=== PATIENT | female | born 2005 | race Caucasian/White ===

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

== ENCOUNTER 2024-04-09 13:19 | Emergency (ER) | payer SELFPAY ==
--- OUTSIDE RECORDS SUMMARY | 2024-04-09 13:24 | XMS REPORT | Continuity of Care Document ---
Author Name Unknown Address [address] [facility] [address] [place] [address] [facility] Address [address] [facility] [place] [address] Care Team Providers Care Demolition Engineer Name Role Phone KENYA ALMANZAR Primary Care Physician UnavailCLOTILDE Cui Attending Clinician Unavailable MADELIN TAVERAS Attending Clinician UnavailMADELIN Guy Attending Clinician Unavaila TY Bueno Attending Clinician Unavailable Clotilde Pineda MD Attending Clinician [phone] SADA GOMEZ Attending Clinician Unavailable Sada Gomez MD Attending Clinician [phone] Doctor Unassigned, [place] Attending Clinician U KATERYNA Gu Attending Clinician KATERYNA Wilhelm Attending Clinician SHAHNAZ Felix Attending Clinician Unavailable KRYSTINA WHYTE Attending Clinician Unavailable ANDREIA ROMAN Attending Clinician Unavailable Andreia Roman MD Attending Clinician [phone] Emma Ortega MD Attending Clinician [phone] EMMA ORTEGA Attending Clinician Unavailabl e Lab, Ang - Db Attending Clinician Unavailable Lab Attending Clinician Unavailable Shahnaz Kong PA-C Attending Clinician [phone] Patito Encarnacion Attending Clinician [phone] PATITO AWAD Attending Clinician Unavailable Lab, Adc Fam Pob I Attending Clinician Unavailab Yu Russothia Attending Clinician AMANDA MAZARIEGOS Attending Clinician Unavailable 2, Adc Lab Attending Clinician Unavailable EMMA ORTEGA Admitting Clinician Unavailabl e Payers Payer Name Policy Type Policy Number Effective Date Expirati on Date Source [facility] Emotient [facility] [id number] 2022 00:00:00 [place] [id number] 2019 00:00:00 Problems Condition Name Condition Details Condition Category Status Onset Date Resolution Date Last Treatment Date Treating Clinician Comments Source BMI 35.0-35.9, adult BMI 35.0-35.9, adult Disease Active 3-20 00:00: 00 [facility] Screening examinatio n for STD (sexually transmitte d disease) Screening examinatio n for STD (sexually transmitte d disease) Disease Active 8- 00:00: 00 [facility] Dysuria Dysuria Disease Active 8-11 00:00: 00 [facility] Pediatric body mass index (BMI) of greater than or equal to 95th percentile for age Pediatric body mass index (BMI) of greater than or equal to 95th percentile for age Disease Active 8- 00:00: 00 [facility] Nexplanon removal Nexplanon removal Disease Active 8-11 00:00: 00 [facility] Left wrist pain Left wrist pain Disease Active 2014-03 009 00:00: 00 [facility] Allergies, Adverse Reactions, Alerts Allergy Name Allergy Type Status Severity Reaction(s) Onset Date Inactive Date Treating Clinician Comments Source NO KNOWN ALLERGIE S Drug Class Active [facility] Social History Social Habit Start Date Stop Date Quantity Comments Source [facility] [place] [place] Sexual orientation [facility] [place] [place] History SDOH Alcohol Std Drinks [facility] History SDOH Alcohol Binge [facility] History SDOH Alcohol Comment [facility] Alcohol intake 2023-02-09 00:00:00 2023-02-09 00:00:00 0 /d [facility] Exposure to SARS-CoV-2 (event) 2022-05-12 00:00:00 2022-05-22 15:40:00 Not sure [facility] Tobacco use and exposure 2021-10-12 00:00:00 2021-10-12 00:00:00 Smokeless tobacco non-user [facility] Tobacco Comment 2021-10-12 00:00:00 2021-10-12 00:00:00 Minor [facility] History of Social function 2020-11-19 00:00:00 2020-11-19 00:00:00 [facility] History SDOH Alcohol Frequency 2019-10-03 00:00:00 2019-10-03 00:00:00 1 [facility] Sex Assigned At 2004 00:00:00 2005 00:00:00 [facility] Smoking Status Start Date Stop Date Source Never smoked tobacco [facility] Medications Ordered Medication Name Filled Medication Name Start Date Stop Date Current Medication? Ordering Clinician Indication Dosage Frequency Signature (SIG) Comments Components Source norelgestro min-ethinyl estradiol (XULANE) 150-35 mcg/24 hr patch 2022-03 00:00: 00 Yes [id number] 1{patch } Apply 1 Patch to skin weekly. [facility] NUVARING 0.12-0.015 mg/24 hr vaginal insert 2022-03 00:00: 00 02-09 00:00 :00 No [id number] 1{each} Insert 1 Each into vagina once every month. Insert vaginally and leave in place for 3 consecutiv e weeks, then remove for 1 week. [facility] ibuprofen (ADVIL) 200 mg tablet 10-03 14:21: 41 10-03 00:00 :00 No 200mg Take 200 mg by mouth every 6 (six) hours as needed. [facility] norgestimat e-ethinyl estradioL (ORTHO TRI-CYCLEN, 28,) 0.18/0.215/ 0.25 mg-35 mcg (28) tablet 10-03 00:00: 00 02-09 00:00 :00 No [id number] 1{tbl} Take 1 tablet by mouth in the morning. [facility] ibuprofen (ADVIL) 200 mg tablet 810 13:11: 47 Yes 200mg Take 200 mg by mouth every 6 (six) hours as needed. [facility] doxycycline monohydrate 100 mg capsule 09-07 00:00: 00 10-03 00:00 :00 No [facility] clindamycin 1 % gel 08-04 00:00: 00 10-03 00:00 :00 No [facility] Immunizations Ordered Immunization Name Filled Immunization Name Date Status Comments Source Influenza Virus Vaccine Quad IM 3+ YRS 2011-12-28 00:00:00 Completed [facility] Influenza Virus Vaccine Quad IM 3+ YRS 2011-12-28 00:00:00 Completed [facility] Influenza Virus Vaccine Quad IM 3+ YRS 2011-12-28 00:00:00 Completed [facility] Influenza Virus Vaccine Quad IM 3+ YRS 2011-12-28 00:00:00 Completed [facility] Influenza Virus Vaccine Quad IM 3+ YRS 2011-12-28 00:00:00 Completed [facility] Influenza Virus Vaccine Quad IM 3+ YRS 2011-12-28 00:00:00 Completed [facility] Influenza Virus Vaccine Quad IM 3+ YRS 2011-12-28 00:00:00 Completed [facility] Influenza Virus Vaccine Quad IM 3+ YRS 2008-11-27 00:00:00 Completed [facility] Influenza Virus Vaccine Quad IM 3+ YRS 2008-11-27 00:00:00 Completed [facility] Influenza Virus Vaccine Quad IM 3+ YRS 2008-11-27 00:00:00 Completed [facility] Influenza Virus Vaccine Quad IM 3+ YRS 2008-11-27 00:00:00 Completed [facility] Influenza Virus Vaccine Quad IM 3+ YRS 2008-11-27 00:00:00 Completed [facility] Influenza Virus Vaccine Quad IM 3+ YRS 2008-11-27 00:00:00 Completed [facility] Influenza Virus Vaccine Quad IM 3+ YRS 2008-11-27 00:00:00 Completed [facility] DTAP 2008-02-25 00:00:00 Completed [facility] MMR 2008-02-25 00:00:00 Completed [facility] Varicella (varivax)(chicken pox) 2008-02-25 00:00:00 Completed [facility] DTAP 2008-02-25 00:00:00 Completed [facility] MMR 2008-02-25 00:00:00 Completed [facility] Varicella (varivax)(chicken pox) 2008-02-25 00:00:00 Completed [facility] DTAP 2008-02-25 00:00:00 Completed [facility] MMR 2008-02-25 00:00:00 Completed [facility] Varicella (varivax)(chicken pox) 2008-02-25 00:00:00 Completed [facility] DTAP 2008-02-25 00:00:00 Completed [facility] MMR 2008-02-25 00:00:00 Completed [facility] Varicella (varivax)(chicken pox) 2008-02-25 00:00:00 Completed [facility] DTAP 2008-02-25 00:00:00 Completed [facility] MMR 2008-02-25 00:00:00 Completed [facility] Varicella (varivax)(chicken pox) 2008-02-25 00:00:00 Completed [facility] DTAP 2008-02-25 00:00:00 Completed [facility] MMR 2008-02-25 00:00:00 Completed [facility] Varicella (varivax)(chicken pox) 2008-02-25 00:00:00 Completed [facility] DTAP 2008-02-25 00:00:00 Completed [facility] MMR 2008-02-25 00:00:00 Completed [facility] Varicella (varivax)(chicken pox) 2008-02-25 00:00:00 Completed [facility] HEPATITIS A 2007-03-20 00:00:00 Completed [facility] HEPATITIS A 2007-03-20 00:00:00 Completed [facility] HEPATITIS A 2007-03-20 00:00:00 Completed [facility] HEPATITIS A 2007-03-20 00:00:00 Completed [facility] HEPATITIS A 2007-03-20 00:00:00 Completed [facility] HEPATITIS A 2007-03-20 00:00:00 Completed [facility] HEPATITIS A 2007-03-20 00:00:00 Completed [facility] HEPATITIS A 2006-02-22 00:00:00 Completed [facility] HEPATITIS A 2006-02-22 00:00:00 Completed [facility] HEPATITIS A 2006-02-22 00:00:00 Completed [facility] HEPATITIS A 2006-02-22 00:00:00 Completed [facility] HEPATITIS A 2006-02-22 00:00:00 Completed [facility] HEPATITIS A 2006-02-22 00:00:00 Completed [facility] HEPATITIS A 2006-02-22 00:00:00 Completed [facility] DTAP 2005-12-25 00:00:00 Completed [facility] DTAP 2005-12-25 00:00:00 Completed [facility] DTAP 2005-12-25 00:00:00 Completed [facility] DTAP 2005-12-25 00:00:00 Completed [facility] DTAP 2005-12-25 00:00:00 Completed [facility] DTAP 2005-12-25 00:00:00 Completed [facility] DTAP 2005-12-25 00:00:00 Completed [facility] HIB 4 Dose Schedule 2005-08-25 00:00:00 Completed [facility] HIB 4 Dose Schedule 2005-08-25 00:00:00 Completed [facility] HIB 4 Dose Schedule 2005-08-25 00:00:00 Completed [facility] HIB 4 Dose Schedule 2005-08-25 00:00:00 Completed [facility] HIB 4 Dose Schedule 2005-08-25 00:00:00 Completed [facility] HIB 4 Dose Schedule 2005-08-25 00:00:00 Completed [facility] HIB 4 Dose Schedule 2005-08-25 00:00:00 Completed [facility] MMR 2005-05-25 00:00:00 Completed [facility] Pneumococcal 13 Conjugate, PCV13 (Prevnar 13) 2005-05-25 00:00:00 Completed [facility] MMR 2005-05-25 00:00:00 Completed [facility] Pneumococcal 13 Conjugate, PCV13 (Prevnar 13) 2005-05-25 00:00:00 Completed [facility] MMR 2005-05-25 00:00:00 Completed [facility] Pneumococcal 13 Conjugate, PCV13 (Prevnar 13) 2005-05-25 00:00:00 Completed [facility] MMR 2005-05-25 00:00:00 Completed [facility] Pneumococcal 13 Conjugate, PCV13 (Prevnar 13) 2005-05-25 00:00:00 Completed [facility] MMR 2005-05-25 00:00:00 Completed [facility] Pneumococcal 13 Conjugate, PCV13 (Prevnar 13) 2005-05-25 00:00:00 Completed [facility] MMR 2005-05-25 00:00:00 Completed [facility] Pneumococcal 13 Conjugate, PCV13 (Prevnar 13) 2005-05-25 00:00:00 Completed [facility] MMR 2005-05-25 00:00:00 Completed [facility] Pneumococcal 13 Conjugate, PCV13 (Prevnar 13) 2005-05-25 00:00:00 Completed [facility] Polio (IPV/OPV) 2005-02-24 00:00:00 Completed [facility] Polio (IPV/OPV) 2005-02-24 00:00:00 Completed [facility] Polio (IPV/OPV) 2005-02-24 00:00:00 Completed [facility] Polio (IPV/OPV) 2005-02-24 00:00:00 Completed [facility] Polio (IPV/OPV) 2005-02-24 00:00:00 Completed [facility] Polio (IPV/OPV) 2005-02-24 00:00:00 Completed [facility] Polio (IPV/OPV) 2005-02-24 00:00:00 Completed [facility] Varicella (varivax)(chicken pox) 2005-02-22 00:00:00 Completed [facility] Varicella (varivax)(chicken pox) 2005-02-22 00:00:00 Completed [facility] Varicella (varivax)(chicken pox) 2005-02-22 00:00:00 Completed [facility] Varicella (varivax)(chicken pox) 2005-02-22 00:00:00 Completed [facility] Varicella (varivax)(chicken pox) 2005-02-22 00:00:00 Completed [facility] Varicella (varivax)(chicken pox) 2005-02-22 00:00:00 Completed [facility] Varicella (varivax)(chicken pox) 2005-02-22 00:00:00 Completed [facility] Influenza Virus Vaccine Quad IM 6-35 MO 2005-01-12 00:00:00 Completed [facility] Influenza Virus Vaccine Quad IM 6-35 MO 2005-01-12 00:00:00 Completed [facility] Influenza Virus Vaccine Quad IM 6-35 MO 2005-01-12 00:00:00 Completed [facility] Influenza Virus Vaccine Quad IM 6-35 MO 2005-01-12 00:00:00 Completed [facility] Influenza Virus Vaccine Quad IM 6-35 MO 2005-01-12 00:00:00 Completed [facility] Influenza Virus Vaccine Quad IM 6-35 MO 2005-01-12 00:00:00 Completed [facility] Influenza Virus Vaccine Quad IM 6-35 MO 2005-01-12 00:00:00 Completed [facility] Influenza Virus Vaccine Quad IM 6-35 MO 2004 00:00:00 Completed [facility] Influenza Virus Vaccine Quad IM 6-35 MO 2004 00:00:00 Completed [facility] Influenza Virus Vaccine Quad IM 6-35 MO 2004 00:00:00 Completed [facility] Influenza Virus Vaccine Quad IM 6-35 MO 2004 00:00:00 Completed [facility] Influenza Virus Vaccine Quad IM 6-35 MO 2004 00:00:00 Completed [facility] Influenza Virus Vaccine Quad IM 6-35 MO 2004 00:00:00 Completed [facility] Influenza Virus Vaccine Quad IM 6-35 MO 2004 00:00:00 Completed [facility] HIB 4 Dose Schedule 2004 00:00:00 Completed [facility] Pediarix (dtap/hep B/ipv) 2004 00:00:00 Completed [facility] Pneumococcal 13 Conjugate, PCV13 (Prevnar 13) 2004 00:00:00 Completed [facility] HIB 4 Dose Schedule 2004 00:00:00 Completed [facility] Pediarix (dtap/hep B/ipv) 2004 00:00:00 Completed [facility] Pneumococcal 13 Conjugate, PCV13 (Prevnar 13) 2004 00:00:00 Completed [facility] HIB 4 Dose Schedule 2004 00:00:00 Completed [facility] Pediarix (dtap/hep B/ipv) 2004 00:00:00 Completed [facility] Pneumococcal 13 Conjugate, PCV13 (Prevnar 13) 2004 00:00:00 Completed [facility] HIB 4 Dose Schedule 2004 00:00:00 Completed [facility] Pediarix (dtap/hep B/ipv) 2004 00:00:00 Completed [facility] Pneumococcal 13 Conjugate, PCV13 (Prevnar 13) 2004 00:00:00 Completed [facility] HIB 4 Dose Schedule 2004 00:00:00 Completed [facility] Pediarix (dtap/hep B/ipv) 2004 00:00:00 Completed [facility] Pneumococcal 13 Conjugate, PCV13 (Prevnar 13) 2004 00:00:00 Completed [facility] HIB 4 Dose Schedule 2004 00:00:00 Completed [facility] Pediarix (dtap/hep B/ipv) 2004 00:00:00 Completed [facility] Pneumococcal 13 Conjugate, PCV13 (Prevnar 13) 2004 00:00:00 Completed [facility] HIB 4 Dose Schedule 2004 00:00:00 Completed [facility] Pediarix (dtap/hep B/ipv) 2004 00:00:00 Completed [facility] Pneumococcal 13 Conjugate, PCV13 (Prevnar 13) 2004 00:00:00 Completed [facility] HIB 4 Dose Schedule 2004 00:00:00 Completed [facility] Pediarix (dtap/hep B/ipv) 2004 00:00:00 Completed [facility] Pneumococcal 13 Conjugate, PCV13 (Prevnar 13) 2004 00:00:00 Completed [facility] HIB 4 Dose Schedule 2004 00:00:00 Completed [facility] Pediarix (dtap/hep B/ipv) 2004 00:00:00 Completed [facility] Pneumococcal 13 Conjugate, PCV13 (Prevnar 13) 2004 00:00:00 Completed [facility] HIB 4 Dose Schedule 2004 00:00:00 Completed [facility] Pediarix (dtap/hep B/ipv) 2004 00:00:00 Completed [facility] Pneumococcal 13 Conjugate, PCV13 (Prevnar 13) 2004 00:00:00 Completed [facility] HIB 4 Dose Schedule 2004 00:00:00 Completed [facility] Pediarix (dtap/hep B/ipv) 2004 00:00:00 Completed [facility] Pneumococcal 13 Conjugate, PCV13 (Prevnar 13) 2004 00:00:00 Completed [facility] HIB 4 Dose Schedule 2004 00:00:00 Completed [facility] Pediarix (dtap/hep B/ipv) 2004 00:00:00 Completed [facility] Pneumococcal 13 Conjugate, PCV13 (Prevnar 13) 2004 00:00:00 Completed [facility] HIB 4 Dose Schedule 2004 00:00:00 Completed [facility] Pediarix (dtap/hep B/ipv) 2004 00:00:00 Completed [facility] Pneumococcal 13 Conjugate, PCV13 (Prevnar 13) 2004 00:00:00 Completed [facility] HIB 4 Dose Schedule 2004 00:00:00 Completed [facility] Pediarix (dtap/hep B/ipv) 2004 00:00:00 Completed [facility] Pneumococcal 13 Conjugate, PCV13 (Prevnar 13) 2004 00:00:00 Completed [facility] HIB 4 Dose Schedule 2004 00:00:00 Completed [facility] Pediarix (dtap/hep B/ipv) 2004 00:00:00 Completed [facility] Pneumococcal 13 Conjugate, PCV13 (Prevnar 13) 2004 00:00:00 Completed [facility] HIB 4 Dose Schedule 2004 00:00:00 Completed [facility] Pediarix (dtap/hep B/ipv) 2004 00:00:00 Completed [facility] Pneumococcal 13 Conjugate, PCV13 (Prevnar 13) 2004 00:00:00 Completed [facility] HIB 4 Dose Schedule 2004 00:00:00 Completed [facility] Pediarix (dtap/hep B/ipv) 2004 00:00:00 Completed [facility] Pneumococcal 13 Conjugate, PCV13 (Prevnar 13) 2004 00:00:00 Completed [facility] HIB 4 Dose Schedule 2004 00:00:00 Completed [facility] Pediarix (dtap/hep B/ipv) 2004 00:00:00 Completed [facility] Pneumococcal 13 Conjugate, PCV13 (Prevnar 13) 2004 00:00:00 Completed [facility] HIB 4 Dose Schedule 2004 00:00:00 Completed [facility] Pediarix (dtap/hep B/ipv) 2004 00:00:00 Completed [facility] Pneumococcal 13 Conjugate, PCV13 (Prevnar 13) 2004 00:00:00 Completed [facility] HIB 4 Dose Schedule 2004 00:00:00 Completed [facility] Pediarix (dtap/hep B/ipv) 2004 00:00:00 Completed [facility] Pneumococcal 13 Conjugate, PCV13 (Prevnar 13) 2004 00:00:00 Completed [facility] HIB 4 Dose Schedule 2004 00:00:00 Completed [facility] Pediarix (dtap/hep B/ipv) 2004 00:00:00 Completed [facility] Pneumococcal 13 Conjugate, PCV13 (Prevnar 13) 2004 00:00:00 Completed [facility] Polio (IPV/OPV) Unknown Completed [facility] DTAP Unknown Completed [facility] HIB 4 Dose Schedule Unknown Completed [facility] HEPATITIS A Unknown Completed [facility] MMR Unknown Completed [facility] Pediarix (dtap/hep B/ipv) Unknown Completed [facility] Pneumococcal 13 Conjugate, PCV13 (Prevnar 13) Unknown Completed [facility] Varicella (varivax)(chicken pox) Unknown Completed [facility] Influenza Virus Vaccine Quad IM 6-35 MO Unknown Completed [facility] Influenza Virus Vaccine Quad IM 3+ YRS Unknown Completed [facility] DTAP Unknown Completed [facility] HIB 4 Dose Schedule Unknown Completed [facility] HEPATITIS A Unknown Completed [facility] MMR Unknown Completed [facility] Pediarix (dtap/hep B/ipv) Unknown Completed [facility] Pneumococcal 13 Conjugate, PCV13 (Prevnar 13) Unknown Completed [facility] Polio (IPV/OPV) Unknown Completed [facility] Varicella (varivax)(chicken pox) Unknown Completed [facility] Influenza Virus Vaccine Quad IM 6-35 MO Unknown Completed [facility] Influenza Virus Vaccine Quad IM 3+ YRS Unknown Completed [facility] DTAP Unknown Completed [facility] HIB 4 Dose Schedule Unknown Completed [facility] HEPATITIS A Unknown Completed [facility] MMR Unknown Completed [facility] Pediarix (dtap/hep B/ipv) Unknown Completed [facility] Pneumococcal 13 Conjugate, PCV13 (Prevnar 13) Unknown Completed [facility] Polio (IPV/OPV) Unknown Completed [facility] Varicella (varivax)(chicken pox) Unknown Completed [facility] Influenza Virus Vaccine Quad IM 6-35 MO Unknown Completed [facility] Influenza Virus Vaccine Quad IM 3+ YRS Unknown Completed [facility] Vital Signs Vital Name Observation Time Observation Value Comments S arsalan Systolic blood pressure 2023-02-09 19:36:00 123 mm[Hg] [facility] Diastolic blood pressure 2023-02-09 19:36:00 69 mm[Hg] [facility] Heart rate 2023-02-09 19:36:00 78 /min [facility] Respiratory rate 2023-02-09 19:36:00 18 /min [facility] Body height 2023-02-09 19:36:00 160 cm [facility] Body weight 2023-02-09 19:36:00 74.39 kg [facility] BMI 2023-02-09 19:36:00 29.05 kg/m2 [facility] Body mass index (BMI) [Percentile] Per age and sex 2023-02-09 19:36:00 92.61 % [facility] Systolic blood pressure 2022-10-03 19:29:00 108 mm[Hg] [facility] Diastolic blood pressure 2022-10-03 19:29:00 72 mm[Hg] [facility] Heart rate 2022-10-03 19:29:00 84 /min [facility] Body temperature 2022-10-03 19:29:00 36.67 Zoey [facility] Respiratory rate 2022-10-03 19:29:00 16 /min [facility] Body height 2022-10-03 19:29:00 160 cm [facility] Body weight 2022-10-03 19:29:00 82.237 kg [facility] BMI 2022-10-03 19:29:00 32.12 kg/m2 [facility] Body mass index (BMI) [Percentile] Per age and sex 2022-10-03 19:29:00 96.15 % [facility] Oxygen saturation in Arterial blood by Pulse oximetry 2022-10-03 19:29:00 97 /min [facility] Systolic blood pressure 2022-05-22 20:49:00 123 mm[Hg] [facility] Diastolic blood pressure 2022-05-22 20:49:00 78 mm[Hg] [facility] Heart rate 2022-05-22 20:49:00 78 /min [facility] Respiratory rate 2022-05-22 20:49:00 18 /min [facility] Body height 2022-05-22 20:49:00 160 cm [facility] Body weight 2022-05-22 20:49:00 89.812 kg [facility] BMI 2022-05-22 20:49:00 35.07 kg/m2 [facility] Body mass index (BMI) [Percentile] Per age and sex 2022-05-22 20:49:00 97.73 % [facility] [facility] Systolic blood pressure 2021-10-12 18:10:00 108 mm[Hg] [facility] Diastolic blood pressure 2021-10-12 18:10:00 71 mm[Hg] [facility] Heart rate 2021-10-12 18:10:00 63 /min [facility] Body temperature 2021-10-12 18:10:00 36.78 Zoey [facility] Respiratory rate 2021-10-12 18:10:00 18 /min [facility] Body height 2021-10-12 18:10:00 160 cm [facility] Body weight 2021-10-12 18:10:00 78.019 kg [facility] BMI 2021-10-12 18:10:00 30.47 kg/m2 [facility] Body mass index (BMI) [Percentile] Per age and sex 2021-10-12 18:10:00 95.42 % [facility] Procedures Procedure Date / Time Performed Performing Clinician Source CONSENT FOR CONTRACEPTION 2023-02-09 06:01:00 Doctor Unassigned, [place] [facility] POCT TEST 2023-02-09 00:00:00 Sada Gomez [facility] CONSENT FOR CONTRACEPTION 2022-10-03 05:01:00 Doctor Unassigned, [place] [facility] POCT TEST 2022-10-03 00:00:00 Zenobia Taveras [facility] ASSIGNMENT OF BENEFITS 2022-05-22 20:43:27 Docto r Unassigned, [place] [facility] VACCINATIONS - CONSENTS, ELIGIBILITY, HISTORY 2021-11-04 05:01:00 Doctor Unassigned, [place] [facility] POCT URINALYSIS W/O SPECIFIC GRAVITY 2021-10-12 00:00:00 Madelin Taveras [facility] Encounters Start Date/Time End Date/Time Encounter Type Admission Type Attending Clinicians Care Facility Care Department Encounter ID Source 2023-10-12 13:00:00 2023-10-12 13:00:00 Outpatient R CLOTILDE PINEDA [facility] [id number] [facility] 2023-10-08 15:30:00 2023-10-08 15:30:00 Outpatient R MADELIN TAVERAS CHERYAL [facility] [id number] [facility] 2023-05-21 16:30:00 2023-05-21 16:30:00 Outpatient R TY RAPP [facility] [id number] [facility] 2023-05-16 00:00:00 2023-05-16 00:00:00 Telephone Clotilde Pineda [facility] 1.840.114 350.1.13.10 4.2.7.2.686 [id number] [facility] 2023-02-09 14:00:00 2023-02-09 14:19:24 Outpatient SADA CORDOVA [facility] [id number] [facility] 2023-02-09 14:00:00 2023-02-09 14:19:24 Office Visit Sada Gomez [facility] 1.840.114 350.1.13.10 4.2.7.2.686 [id number] [facility] 2023-02-09 00:00:00 2023-02-09 00:00:00 Orders Only Doctor Unassigned, [place] [facility] 1.840.114 350.1.13.10 4.2.7.2.686 [id number] [facility] 2022-10-03 14:30:00 2022-10-03 14:42:01 Outpatient R MADELIN TAVERAS CHERYAL [facility] [id number] [facility] 2022-10-03 14:30:00 2022-10-03 14:42:01 Office Visit Madelin Taveras [facility] 1.2.840.114 350.1.13.10 4.2.7.2.686 [id number] [facility] 2022-10-03 00:00:00 2022-10-03 00:00:00 Orders Only Doctor Unassigned, [place] [facility] 1.2.840.114 350.1.13.10 4.2.7.2.686 [id number] [facility] 2022-05-25 00:00:00 2022-05-25 00:00:00 [facility] 1.2840.114 350.1.13.10 4.2.7.2.686 [id number] [facility] 2022-05-22 16:00:00 2022-05-22 16:11:36 Outpatient R AURORAAUNDREA PATIÑODARIEL [facility] [id number] [facility] 2022-05-22 16:00:00 2022-05-22 16:11:36 Office Visit Madelin Taveras [facility] 1.2.840.114 350.1.13.10 4.2.7.2.686 [id number] [facility] 2022-05-22 00:00:00 2022-05-22 00:00:00 Orders Only Doctor Unassigned, [place] [facility] 1.2.840.114 350.1.13.10 4.2.7.2.686 [id number] [facility] 2022-05-10 13:00:00 2022-05-10 13:00:00 Outpatient R MADELIN TAVERAS CHERYAL [facility] [id number] [facility] 2021-11-04 00:00:00 2021-11-04 00:00:00 Orders Only Doctor Unassigned, [place] [facility] 1.2.840.114 350.1.13.10 4.2.7.2.686 [id number] [facility] 2021-10-12 13:00:00 2021-10-12 14:32:17 Outpatient R MADELIN TAVERAS CHERYAL [facility] [id number] [facility] 2021-10-12 13:00:00 2021-10-12 14:32:17 Office Visit SandyMadelin lafleur [facility] 1.2.840.114 350.1.13.10 4.2.7.2.686 [id number] [facility] 2021-10-11 09:00:00 2021-10-11 09:00:00 Outpatient R MADELIN TAVERAS CHERY[facility] [id number] [facility] 2021-10-05 09:00:00 2021-10-05 09:00:00 Outpatient R SHAHNAZ KONG [facility] [id number] [facility] 2021-08-15 09:00:00 2021-08-15 09:00:00 Outpatient KRYSTINA BOB [facility] [id number] [facility] 2021-05-20 12:00:00 2021-05-20 12:00:00 Outpatient ANDREIA CHAN [facility] [id number] [facility] 2021-05-06 12:40:00 2021-05-06 12:40:00 Outpatient ANDREIA CHAN [facility] [id number] [facility] 2021-04-22 12:20:00 2021-04-22 12:20:00 Outpatient ANDREIA CHAN [facility] [id number] [facility] 2021-01-21 13:48:33 2021-01-21 23:59:00 Outpatient R ANDREIA ROMAN [facility] [id number] [facility] 2021-01-21 13:48:33 2021-01-21 23:59:00 Hospital Encounter Andreia oRman [facility] 1.2.840.114 350.1.13.10 4.2.7.2.686 [id number] [facility] 2021-01-21 13:40:00 2021-01-21 14:26:58 Office Visit Andreia Roman [facility] 1.2840.114 350.1.13.10 4.2.7.2.686 [id number] [facility] 2021-01-21 13:48:33 2021-01-21 13:48:33 Outpatient R ANDREIA ROMAN [facility] [id number] [facility] 2021-01-21 00:00:00 2021-01-21 00:00:00 Letter (Out) Andreia Roman [facility] 1.2840.114 350.1.13.10 4.2.7.2.686 [id number] [facility] 2020-12-16 00:00:00 2020-12-16 00:00:00 Letter (Out) Emma Ortega [facility] Office Building 1.2840.114 350.1.13.10 4.2.7.2.686 [id number] [facility] 2020-12-09 00:00:00 2020-12-09 00:00:00 Telephone Emma Ortega [facility] 1.2840.114 350.1.13.10 4.2.7.2.686 [id number] [facility] 2020-11-26 08:30:00 2020-11-26 08:30:00 Outpatient R EMMA ORTEGA [facility] [id number] [facility] 2020-11-19 10:03:46 2020-11-19 10:18:46 Loan Servicing Officer Visit Lab, Ang - Db Emma Ortega [facility] 1.114 350.1.13.10 4.2.7.2.686 [id number] [facility] 2020-11-19 09:03:28 2020-11-19 09:17:01 Office Visit [facility] Office Building 1.114 350.1.13.10 4.2.7.2.686 [id number] [facility] 2020-11-19 09:00:00 2020-11-19 09:00:00 Outpatient R EMMA ORTEGA [facility] [id number] [facility] 2020-11-19 00:00:00 2020-11-19 00:00:00 Letter (Out) Emma Ortega [facility] 1..114 350.1.13.10 4.2.7.2.686 [id number] [facility] 2020-10-05 10:31:01 2020-10-05 10:46:01 Loan Servicing Officer Visit 1, Adc Lab Lu[facility] 1.114 350.1.13.10 4.2.7.2.686 [id number] [facility] 2020-10-05 09:39:41 2020-10-05 10:03:56 Office Visit [facility] nal [facility] 1..114 350.1.13.10 4.2.7.2.686 [id number] [facility] 2020-10-05 09:30:00 2020-10-05 09:30:00 Outpatient SHAHNAZ SAUNDERS [facility] [id number] [facility] 2020-10-05 00:00:00 2020-10-05 00:00:00 Orders Only Doctor Unassigned, [place] [facility] 1.2.840.114 350.1.13.10 4.2.7.2.686 [id number] [facility] 2020-10-04 14:00:00 2020-10-04 14:00:00 Outpatient SHAHNAZ SAUNDERS [facility] [id number] [facility] 2020-07-26 15:33:59 2020-07-26 15:56:51 Office Visit Emma Ortega [facility] [place] [place] 1..840.114 350.1.13.10 4.2.7.2.686 [id number] [facility] 2020-07-26 15:30:00 2020-07-26 15:30:00 Outpatient EMMA MONIQUE [facility] [id number] [facility] 2020-07-19 09:47:59 2020-07-19 23:59:00 Outpatient EMMA MONIQUE [facility] [id number] [facility] 2020-07-19 09:47:59 2020-07-19 23:59:00 Hospital Encounter Emma Ortega [facility] 1..840.114 350.1.13.10 4.2.7.2.686 [id number] [facility] 2020-07-19 00:00:00 2020-07-19 00:00:00 Outpatient EMMA MONIQUE [facility] [id number] [facility] 2020-07-13 00:00:00 2020-07-13 00:00:00 Outpatient R EMMA ORTEGA [facility] [id number] [facility] 2020-07-08 00:00:00 2020-07-08 00:00:00 Orders Only Doctor Unassigned, [place] [facility] 1..114 350.1.13.10 4.2.7.2.686 [id number] [facility] 2020-06-30 00:00:00 2020-06-30 00:00:00 Telephone Emma Ortega [facility] [place] [place] 1..114 350.1.13.10 4.2.7.2.686 [id number] [facility] 2020-06-24 10:52:22 2020-06-24 11:11:02 Office Visit Emma Ortega Brett S [facility] Surgical [facility] 1..114 350.1.13.10 4.2.7.2.686 [id number] [facility] 2020-06-24 10:45:00 2020-06-24 10:45:00 Outpatient PATITO LEGGETT [facility] [id number] [facility] 2020-06-24 00:00:00 2020-06-24 00:00:00 Letter (Out) Emma Ortega [facility] Surgical [facility] [place]ie [place] 1..114 350.1.13.10 4.2.7.2.686 [id number] [facility] 2020-05-18 09:13:30 2020-05-18 09:33:30 Laboratory Only Lab, Adc Fam Amanda Kay [facility] Professio nal Office Building One 1.114 350.1.13.10 4.2.7.2.686 [id number] [facility] 2020-05-18 09:00:00 2020-05-18 09:00:00 Outpatient R AMANDA MAZARIEGOS [facility] [id number] [facility] 2020-05-18 00:00:00 2020-05-18 00:00:00 Letter (Out) Doctor Unassigned, [place] [facility] 1.2.840.114 350.1.13.10 4.2.7.2.686 [id number] [facility] 2020-05-18 00:00:00 2020-05-18 00:00:00 Letter (Out) Doctor Unassigned, [place] [facility] 1.2840.114 350.1.13.10 4.2.7.2.686 [id number] [facility] 2019-10-14 10:14:17 2019-10-14 11:00:23 Office Visit Clotilde Pineda [facility] 1.20.114 350.1.13.10 4.2.7.2.686 [id number] 2019-10-14 10:14:17 2019-10-14 11:00:23 Office Visit Clotilde Pineda [facility] 1.2840.114 350.1.13.10 4.2.7.2.686 [id number] [facility] 2019-10-14 10:30:00 2019-10-14 10:30:00 Outpatient R CLOTILDE PINEDA [facility] [id number] [facility] 2019-10-14 00:00:00 2019-10-14 00:00:00 Orders Only Doctor Unassigned, [place] [facility] 1.2840.114 350.1.13.10 4.2.7.2.686 [id number] 2019-10-14 00:00:00 2019-10-14 00:00:00 Orders Only Doctor Unassigned, [place] [facility] 1.2840.114 350.1.13.10 4.2.7.2.686 [id number] [facility] 2019-10-06 13:38:20 2019-10-06 13:53:20 Loan Servicing Officer Visit 2, Adc Lab Shahnaz Kong [facility] [place] 1.84.114 350.1.13.10 4.2.7.2.686 [id number] [facility] 2019-10-06 13:15:00 2019-10-06 13:15:00 Outpatient R [facility] [id number] [facility] 2019-10-03 15:37:18 2019-10-03 16:07:18 Office Visit Shahnaz Kong [facility] 1.84.114 350.1.13.10 4.2.7.2.686 [id number] [facility] 2019-10-03 15:30:00 2019-10-03 15:30:00 Outpatient R LUANN [facility] [id number] [facility] 2019-05-21 15:45:00 2019-05-21 15:45:00 Outpatient R PATITO AWAD [facility] [id number] [facility] 2019-05-21 12:49:05 2019-05-21 13:04:05 Office Visit Patito Awad [facility] Surgical Specialkathryn [facility] 1.84.114 350.1.13.10 4.2.7.2.686 [id number] [facility] 2019-05-13 00:00:00 2019-05-13 00:00:00 Orders Only Doctor Unassigned, [place] [facility] 1..114 350.1.13.10 4.2.7.2.686 [id number] [facility] 2019-05-08 00:00:00 2019-05-08 00:00:00 Letter (Out) Emma Ortega [facility] [place] 1.2.840.114 350.1.13.10 4.2.7.2.686 [id number] [facility] 2019-05-07 09:11:19 2019-05-07 23:59:00 Hospital Encounter Emma Ortega [facility] 1.2.840.114 350.1.13.10 4.2.7.2.686 [id number] [facility] 2019-05-07 00:00:00 2019-05-07 00:00:00 Outpatient R SHANNON [facility] [id number] [facility] 2019-05-07 00:00:00 2019-05-07 00:00:00 Orders Only Doctor Unassigned, [place] [facility] 1.2.840.114 350.1.13.10 4.2.7.2.686 [id number] [facility] 2019-04-29 00:00:00 2019-04-29 00:00:00 Telephone Emma Ortega [facility] Surgical Specialti rickie Cohen 1.2.840.114 350.1.13.10 4.2.7.2.686 [id number] [facility] 2019-04-22 00:00:00 2019-04-22 00:00:00 Telephone Patito Awad [facility] Surgical Specialti rickie Cohen 1.2.840.114 350.1.13.10 4.2.7.2.686 [id number] [facility] 2019-04-18 10:00:00 2019-04-18 10:40:23 Outpatient R PATITO AWAD [facility] [id number] [facility] 2019-04-18 10:07:15 2019-04-18 10:22:15 Office Visit Patito Awad [facility] [place] 1.2.840.114 350.1.13.10 4.2.7.2.686 [id number] [facility] 2019-04-18 00:00:00 2019-04-18 00:00:00 Letter (Out) Patito Awad [facility] Surgical Specialkathryn Cohen 1.2.840.114 350.1.13.10 4.2.7.2.686 [id number] [facility] 2019-04-18 00:00:00 2019-04-18 00:00:00 Telephone Patito Awad [facility] Surgical Specialkathryn Cohen 1.2.840.114 350.1.13.10 4.2.7.2.686 [id number] [facility] Results Test Description Test Time Test Comments Results Result Co mments Source [facility] [id number] 20:11:00* Test Item Value Reference Range Interpretation Comme nts POCT PREG (test code = 1605) Negative On board controls acceptable with C Line (test code = 3574) Yes POCT PREG LOT # (test code = 3575) POCT PREG TEST DATE ( test code = 3576) [facility] [id number] 19:33:00* Test Item Value Reference Range Interpretation Comme nts POCT PREG (test code = 1605) Negative On board controls acceptable with C Line (test code = 3574) Yes POCT PREG LOT # (test code = 3575) POCT PREG TEST DATE ( test code = 3576) [facility] [id number] 19:33:00* Test Item Value Reference Range Interpretation Comme nts POCT PREG (test code = 1605) Negative On board controls acceptable with C Line (test code = 3574) Yes POCT PREG LOT # (test code = 3575) POCT PREG TEST DATE ( test code = 3576) [facility] URINALYSIS W/O SPECIFIC [id number] 18:12:00* Test Item Value Reference Range Interpretation [...] = 3257) negative Negative - [facility]ati [facility] [id number] 18:12:00* Test Item Value Reference Range Interpretation [...] = 3257) negative Negative - Negati ve [facility]
[2024-04-09] MEDS ORDERED: ONDANSETRON 4 MG (ODT) TAB ONE (13:30)
[2024-04-09 14:19] LABS: SARS-CoV-2 Antigen CONTROL BLUE LINE VIS/BG OK; SARS-CoV-2 Antigen Rapid Res Negative (Negative)
--- NOTE | 2024-04-09 14:27 | ER ---
Nurse's Notes [facility] Name: Gely Merrill Age: 19 yrs Sex: Female : 2005 Arrival Date: 04/09/2024 Time: 13:19 Bed DX3 Private MD: Diagnosis: Influenza due to identified novel influenza A virus Presentation: 04/09 13:29 Chief complaint: Patient states: Headache, sore throat, fever, cough onset Sunday. Pt cm10 diagnosed with ear infection on Sunday and placed on ABX. Coronavirus screen: Client denies travel out of the [place] in the last 14 days. Ebola Screen: Patient denies travel to an Ebola-affected area in the 21 days before illness onset. 13:29 Method Of Arrival: Ambulatory cm10 13:32 Initial Sepsis Screen: Does the patient meet any 2 criteria? HR > 90 bpm. Does the cm10 patient have a suspected source of infection? No. Patient's initial sepsis screen is negative. Risk Assessment: Do you want to hurt yourself or someone else? Patient reports no desire to harm self or others. Onset of symptoms was April 07, 2024. 13:32 Acuity: SATYA 4 cm10 Triage Assessment: 13:33 General: Appears uncomfortable, Behavior is calm, cooperative. Neuro: No deficits cm10 noted. Level of Consciousness is awake, alert, obeys commands, Oriented to person, place, time, situation, Appropriate for age. Respiratory: No deficits noted. Airway is patent Respiratory effort is even, unlabored, Respiratory pattern is regular, symmetrical. 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 - Infectious Disease History:: Denies. - Social history:: Smoking status: Patient denies any tobacco usage or history of. Screenin:32 [facility] ED Fall Risk Assessment (Adult) History of falling in the last 3 months, iw including since admission No falls in past 3 months (0 pts) Confusion or Disorientation No (0 pts) Intoxicated or Sedated No (0 pts) Impaired Gait No (0 pts) Mobility Assist Device Used No (0 pt) Altered Elimination No (0 pt) Score/Fall Risk Level 0 - 2 = Low Risk Oriented to surroundings, Maintained a safe environment. Abuse screen: Denies threats or abuse. Denies injuries from another. Nutritional screening: No deficits noted. Tuberculosis screening: No symptoms or risk factors identified. Assessment: 14:00 General: Appears in no apparent distress. Behavior is calm, cooperative. General: iw Reports. Neuro: Wise Agitation-Sedation Scale (RASS): Level of Consciousness is awake, alert, obeys commands, Oriented to person, place, time, situation, Moves all extremities. Full function. Respiratory: Respiratory effort is even, unlabored, Respiratory pattern is regular, symmetrical. GI: Vital Signs: 13:29 BP 116 / 80; Pulse 117; Resp 18; Temp 99.5(O); Pulse Ox 97% on R/A; Weight 63.5 kg; cm10 Height 5 ft. 3 in. ; Pain 7/10; 13:29 Body Mass Index 24.80 (63.50 kg, 160.02 cm) cm10 13:29 Pain Scale: Adult cm10 ED Course: 13:24 Patient arrived in ED. al6 13:26 Radha Lan FNP-C [facility] kb 13:26 Devon Sousa MD is Attending Physician. kb 13:33 Triage completed. cm10 13:33 Arm band placed on right wrist. Patient placed in waiting room. cm10 13:37 SARS RAPID Sent. cm10 13:37 Strep Sent. cm10 13:37 Flu Sent. cm10 13:37 COVID swab sent to lab. Flu and/or RSV swab sent to lab. Strep swab sent to lab. cm10 14:31 Savannah Dorsey, RN is Primary Nurse. iw 14:32 No provider procedures requiring assistance completed. Patient did not have IV access iw during this emergency room visit. Administered Medications: 13:37 Drug: Ondansetron PO 4 mg PO once Route: PO; cm10 Medication: 14:30 VIS not applicable for this client. iw Outcome: 14:26 Discharge ordered by . kb 14:31 Discharged to home ambulatory, iw 14:31 Condition: good 14:31 Discharge instructions given to patient, Instructed on discharge instructions, follow up and referral plans. Demonstrated understanding of instructions, follow-up care, medications, Prescriptions given X 1, 14:32 Patient left the ED. iw Signatures: Radha Lan, ALEXANDER-C STUDENT TRUCK DRIVER-Savannah Felix RN RN iw Lori Rosario RN RN cm10 Kat Prasad6 Corrections: (The following items were deleted from the chart) 13:33 13:29 BP 116 / 80; Pulse 117bpm; Resp 18bpm; Pulse Ox 97% RA; Temp 99.5F Oral; 63.5 kg; cm10 Height 5 ft. 3 in.; BMI: 24.8; cm10
--- NOTE | 2024-04-09 14:27 | EDPHYS ---
Physician Documentation [facility] Name: Gely Merrill Age: 19 yrs Sex: Female : 2005 Arrival Date: 04/09/2024 Time: 13:19 Bed DX3 Private MD: ED Physician Devon Sousa HPI: 04/09 13:34 This 19 yrs old Female presents to ER via Ambulatory with complaints of Abdominal Pain, kb Vomiting, Dizziness, Fever. 13:34 Pt is a 19 year old female who presents for fever up to 103, cough, congestion, fever, kb vomiting, headache, bilateral ear pain and sore throat for 3 days. STates she was seen by PCP at onset of symptoms, tested negative for strep and flu, and started on cefdinir for otitis media. States symptoms have progressed continued and her fever won't break. . 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 - Infectious Disease History:: Denies. - Social history:: Smoking status: Patient denies any tobacco usage or history of. ROS: 13:34 Constitutional: As per HPI kb Exam: 13:34 Constitutional: This is a well developed, well nourished patient who is awake, alert, kb and in no acute distress. Head/Face: Normocephalic, atraumatic. ENT: Moist Mucous membranes Cardiovascular: Regular rate Respiratory: Respirations even and unlabored. No increased work of breathing. Talking in full sentences Abdomen/GI: Soft, non-tender. No distention Skin: Warm, dry with normal turgor. Normal color. MS/ Extremity: Pulses equal, no cyanosis. Neurovascular intact. Full, normal range of motion. Neuro: Awake and alert, GCS 15, oriented to person, place, time, and situation. Vital Signs: 13:29 BP 116 / 80; Pulse 117; Resp 18; Temp 99.5(O); Pulse Ox 97% on R/A; Weight 63.5 kg; cm10 Height 5 ft. 3 in. ; Pain 09/11; 13:29 Body Mass Index 24.80 (63.50 kg, 160.02 cm) cm10 13:29 Pain Scale: Adult cm10 MDM: 13:26 Medical Screening Exam initiated kb 13:34 Differential diagnosis: flu, covid, strep, mono, uri, pneumonia. Data reviewed: vital kb signs, nurses notes. 14:24 Differential Diagnosis:. Test considered but Not performed: X-ray: CXR considered but kb lungs clear bilaterally, resp even and unlabored.. Counseling: I had a detailed discussion with the patient and/or guardian regarding the historical points, exam findings, and any diagnostic results supporting the discharge/admit diagnosis, lab results, the need for outpatient follow up, a family practitioner, to return to the emergency department if symptoms worsen or persist or if there are any questions or concerns that arise at home. 04/09 13:32 Order name: Strep cm10 04/09 13:32 Order name: Flu; Complete Time: 14:20 cm10 04/09 13:32 Order name: SARS RAPID; Complete Time: 14:20 cm10 04/09 14:23 Order name: Throat Culture [facility] 04/09 14:23 Order name: PO challenge; Complete Time: 14:23 kb Administered Medications: 13:37 Drug: Ondansetron PO 4 mg PO once Route: PO; cm10 Disposition Summary: 04/09/24 14:26 Discharge Ordered Notes: Location: Home kb Condition: Stable kb Diagnosis - Influenza due to identified novel influenza A virus kb Followup: kb - With: Emergency Department - When: As needed - Reason: Worsening of condition Followup: kb - With: Private Physician - When: 2 - 3 days - Reason: Recheck today's complaints, Continuance of care, Re-evaluation by your physician Discharge Instructions: - Discharge Summary Sheet kb - Influenza, Adult, [id number] kb Forms: - Medication Reconciliation Form kb - Antibiotic Education kb - Prescription Opioid Use kb - Patient Portal Instructions kb - Leadership Thank You Letter kb Prescriptions: - Zofran 4 mg Oral tablet - take 1 tablet ORAL route every 6 hours As needed; 12 tablet; Refills: 0, kb Product Selection Permitted Signatures: Dispatcher [employer] EDRadha Hutner, Lori Epstein, RN RN cm10
[2024-04-09 14:44] VITALS: BP 116/80; TEMP 99.5; O2SAT 97
== END 2024-04-09 14:32 | disposition home or self-care (01) ==
LOC: ER 13:19
DX: J10.1 Influenza due to other identified influenza virus with other respiratory manifestations (principal); Z11.52 Encounter for screening for COVID-19
CPT/HCPCS: 36415; 87070; 87081; 87804; 87811; Q0162